=== PATIENT | male | born 1955 | race African-American/Black ===

== ENCOUNTER 2017-08-25 16:58 | Emergency (ER) | payer OTHER ==
[~2017-08-25] VITALS: Ht 167.6 cm; Wt 64.0 kg
[2017-08-25 17:10] VITALS: BP 147/85; PULSE 83; RESP 16; TEMP 98.5; O2SAT 96
--- NOTE | 2017-08-25 17:15 | PD ---
HPI Chief Complaint: Medical Clearance Time Seen by Provider: 17:15 Travel History International Travel<30 days: No Contact w/Intl Traveler<30days: No Traveled to known affect area: No History of Present Illness HPI 62-year-old male presents to the emergency Department police custody for evaluation of head injury. Apparently, the patient was resisting arrest when he was taken to the ground and is complaining of left head pain since then. The patient states he lost consciousness for a brief period 2. Patient is agitated during my exam. He denies any neck pain or back pain. No chest pain or abdominal pain. No nausea, vomiting, diarrhea. He reports no chronic medical problems and takes no prescribed medications. He does have an abrasion left forehead. He states his tetanus immunization was 2 days ago. Severity is mild. No exacerbating or alleviating factors. No radiation of pain. PFSH Past Medical History Medical History: Denies Significant Hx Past Surgical History Surgical History: No Previous Surgery Social History Alcohol Use: Yes (DAILY) Tobacco Use: Yes (1/2 PPD) Substance Use: No Allergies-Medications (Allergen,Severity, Reaction): Coded Allergies: ibuprofen (Unverified Allergy, Severe, 08/25/17) Reported Meds & Prescriptions Reported Meds & Active Scripts Active No Active Prescriptions or Reported Medications Review of Systems Except as stated in HPI: all other systems reviewed are Neg Physical Exam Narrative GENERAL: Well-nourished, well-developed male patient, afebrile. SKIN: Focused skin assessment warm/dry. Patient does have abrasion noted to the left forehead. No lacerations. HEAD: Normocephalic. EYES: No scleral icterus. No injection or drainage. NECK: Supple, trachea midline. No JVD or lymphadenopathy. CARDIOVASCULAR: Regular rate and rhythm without murmurs, gallops, or rubs. RESPIRATORY: Breath sounds equal bilaterally. No accessory muscle use. Lungs sounds are clear to auscultation. GASTROINTESTINAL: Abdomen soft, non-tender, nondistended. MUSCULOSKELETAL: No cyanosis, or edema. BACK: Nontender without obvious deformity. No CVA tenderness. No midline spinal tenderness. Data Data Last Documented VS Vital Signs Date Time Temp Pulse Resp B/P (MAP) Pulse Ox O2 Delivery O2 Flow Rate FiO2 08/25/17 17:10 98.5 83 16 147/85 (105) [address] Brain W/O Iv Contrast(Rout) (08/25/17 ) MDM Medical Decision Making Medical Screen Exam Complete: Yes Emergency Medical Condition: Yes Medical Record Reviewed: Yes Interpretation(s) CT brain - CONCLUSION: Normal examination. Differential Diagnosis Closed head injury versus intracranial abnormality versus abrasion versus medical clearance Narrative Course 62-year-old male presents to the emergency Department under police custody for evaluation of head injury. CT of the brain is ordered and pending. CT of the brain is normal. Patient is cleared for discharge in police custody. The patient was discharged in stable condition with instructions, including return instructions and follow up instructions. Diagnosis Primary Impression: Closed head injury Qualified Codes: S09.90XA - Unspecified injury of head, initial encounter Additional Impression: Forehead abrasion Qualified Codes: S00.81XA - Abrasion of other part of head, initial encounter Referrals: Primary Care Physician call for appointment Patient Instructions: Abrasion (ED), General Instructions, Head Injury (ED) Additional Instructions: Your CT of the brain is normal today. Follow-up with your primary care physician. Return to the emergency department for any acute worsening of symptoms. Scripts No Active Prescriptions or Reported Meds Disposition: [address] LAW ENFORCEMNT Condition: Stable Stefanie Day GUME Aug 25, 2017 17:15
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
== END 2017-08-25 17:52 ==
LOC: NEDAMB 16:58
DX: S00.81XA Abrasion of other part of head, initial encounter (principal); Y35.893A Legal intervention involving other specified means, suspect injured, initial encounter
CPT/HCPCS: 70450; 99284